=== PATIENT | male | born 1960 | race Caucasian/White ===

== ENCOUNTER 2020-11-05 12:41 | Inpatient (IN) | payer OTHER ==
[2020-11-05] MEDS ORDERED: NITROGLYCERIN SL TABS 0.4 MG TAB SUBLINGUAL PRN ×2 (13:03→18:25)
--- NOTE | 2020-11-05 13:05 | ED ---
Chest Pain HPI - General Source: patient, EMS, RN notes reviewed Mode of arrival: EMS Limitations: no limitations <Toi Rebolledo - Last Filed: 11/05/20 13:16> <Mc Gallo - Last Filed: 11/05/20 14:42> - General Chief Complaint: Chest Pain Stated Complaint: Chest Pain Time Seen by Provider: 11/05/20 12:49 - History of Present Illness Initial Comments: This is a 60-year-old male [facility] emergency [facility] Chief Complaint of Chest Pain. Patient States She's Had to Spend the past but Was More Extensive This Morning. Patient States Started While Putting Wood into the Wood Stove. Patient Was Evaluated and [facility] in Which His Troponin Was 0.045. Patient Was Given Aspirin, Nitro. He States That His Pain Resolved with Nitro He Has No Current Complaints of Chest Pain. Patient Was Started on Heparin Drip. Patient Denies Shortness Breath No Diapho retic Episodes of Abdominal Pain No Leg Pain or Leg Swelling. (Toi Rebolledo) - Related Data Allergies Allergy/AdvReac Type Severity Reaction Status Date / Time sulfamethoxazole Allergy Unknown Verified 11/05/20 13:56 [From Bactrim] trimethoprim [From Bactrim] Allergy Unknown Verified 11/05/20 13:56 Review of Systems ROS Other: All systems not noted in ROS Statement are negative. <Toi Rebolledo - Last Filed: 11/05/20 13:16> ROS Other: All systems not noted in ROS Statement are negative. <Mc Gallo - Last Filed: 11/05/20 14:42> ROS Statement: Those systems with pertinent positive or pertinent negative responses have been documented in the HPI. Past Medical History Past Medical History: Hyperlipidemia, Hypertension History of Any Multi-Drug Resistant Organisms: None Reported Past Surgical History: Heart Catheterization Past Psychological History: No Psychological Hx Reported Smoking Status: Former smoker Past Alcohol Use History: Occasional Past Drug Use History: None Reported <Toi Rebolledo - Last Filed: 11/05/20 13:16> - Past Family History Father Family Medical History: Cancer Additional Family Medical History / Comment(s): Father of some form of cancer. Mother Family Medical History: No Reported History Additional Family Medical History / Comment(s): Mother is alive and healthy <Mc Gallo - Last Filed: 11/05/20 14:42> General Exam Limitations: no limitations General appearance: alert, in no apparent distress Head exam: Present: atraumatic, normocephalic, normal inspection Eye exam: Present: normal appearance, PERRL, EOMI. Absent: scleral icterus, conjunctival injection, periorbital swelling ENT exam: Present: normal exam, normal oropharynx, mucous membranes moist Neck exam: Present: normal inspection, full ROM. Absent: tenderness, meningismus, lymphadenopathy Respiratory exam: Present: normal lung sounds bilaterally. Absent: respiratory distress, wheezes, rales, rhonchi, stridor Cardiovascular Exam: Present: regular rate, normal rhythm, normal heart sounds. Absent: systolic murmur, diastolic murmur, rubs, gallop, clicks GI/Abdominal exam: Present: soft, normal bowel sounds. Absent: distended, tenderness, guarding, rebound, rigid <Toi Rebolledo - Last Filed: 11/05/20 13:16> Course <Mc Gallo - Last Filed: 11/05/20 14:42> Vital Signs 11/05/20 11/05/20 12:46 13:30 Temperature 97.9 F Pulse Rate 64 72 Respiratory 18 18 Rate Blood Pressure 144/87 129/92 O2 Sat by Pulse 98 98 Oximetry - Reevaluation(s) Reevaluation #1: 11/05/20 14:42 Case discussed with the admitting physician Dr. Liu, heparin has been continued, patient is chest pain-free in the emergency department. Cardiology has been paged. Echo has been ordered. (Mc Gallo) Chest Pain MDM <Toi Rebolledo - Last Filed: 11/05/20 13:16> - MDM Prior medical records were reviewed. Repeat troponin was ordered, patient will be continued on heparin. (Toi Rebolledo) Disposition <Toi Rebolledo - Last Filed: 11/05/20 13:16> <Mc Gallo - Last Filed: 11/05/20 14:42> Clinical Impression: Chest pain Disposition: ADMITTED IP TO THIS HOSP Condition: Fair
[2020-11-05] MEDS ORDERED: HEPARIN SOD,PORK IN 0.45% NACL 25,000 UNIT in 0.45% NACL 1 250ML.BAG IV SCH (13:15)
--- NOTE | 2020-11-05 18:20 | ECHOF ---
Referral Reason:chest pain MEASUREMENTS -------- HEIGHT: 175.3 cm WEIGHT: 99.8 kg BP: 144/87 RVIDd: 3.3 cm (< 3.3) IVSd: 1.0 cm (0.6 - 1.1) LVIDd: 4.7 cm (3.9 - 5.3) LVPWd: 0.9 cm (0.6 - 1.1) IVSs: 1.6 cm LVIDs: 3.0 cm LVPWs: 1.6 cm LA Diam: 3.7 cm (2.7 - 3.8) LAESV Index (A-L): 20.19 ml/m Ao Diam: 3.5 cm (2.0 - 3.7) AV Cusp: 2.2 cm (1.5 - 2.6) MV EXCURSION: 10.090 mm (> 18.000) MV EF SLOPE: 91 mm/s (70 - 150) EPSS: 0.3 cm MV E Mainor: 0.86 m/s MV DecT: 173 ms MV A Mainor: 0.77 m/s MV E/A Ratio: 1.12 RAP: 5.00 mmHg RVSP: 30.80 mmHg FINDINGS -------- Sinus rhythm. This was a technically adequate study. The left ventricular size is normal. Left ventricular wall thickness is normal. Overall left vent ricular systolic function is normal with, an EF between 60 - 65 %. The right ventricle is mildly enlarged. Normal LA size by volume 22+/-6 ml/m2. The right atrium is normal in size. Interatrial and interventricular septum intact. The aortic valve is trileaflet and appears structurally normal. There is trace to mild mitral regurgitation. Mild tricuspid regurgitation present. Right ventricular systolic pressure is normal at < 35 mmHg. Trace/mild (physiologic) pulmonic regurgitation. The aortic root size is normal. IVC Not well visulized. There is no pericardial effusion. CONCLUSIONS -------- 1. The left ventricular size is normal. 2. Left ventricular wall thickness is normal. 3. Overall left ventricular systolic function is normal with, an EF between 60 - 65 %. 4. The right ventricle is mildly enlarged. 5. There is trace to mild mitral regurgitation. 6. Mild tricuspid regurgitation present. 7. Trace/mild (physiologic) pulmonic regurgitation. 8. There is no pericardial effusion. VEST FRONT PRESSER: SYDNEE Huerta
[2020-11-05] MEDS ORDERED: ALPRAZolam 0.5 MG TAB PO PRN (18:25)
[2020-11-05] MEDS ORDERED: ALPRAZolam 0.25 MG TAB PO PRN (18:25)
--- NOTE | 2020-11-05 18:30 | P.CRDCN ---
History of Present Illness Consult date: 11/05/20 History of present illness: This is a 60-year-old gentleman with history of hypertension and hypercholesterolemia who had a cardiac catheterization several years ago in [place]. Patient is also a former smoker. Patient went to [facility] because of chest pains. Apparently patient has been having some tight feeling with exertion and relieved with rest for several days prior to today. Today patient started having chest discomfort that did not go away with rest. The there is some radiation of the discomfort to the left arm. No complaints of any nausea, vomiting, sweating or shortness of breath. In the emergency room in [facility], patient was treated with sublingual nitro with improvement of symptoms. Subsequently, patient is transferred here. His EKG showed sinus bradycardia without any acute ST-T changes. However, his cardiac enzymes studies are showing abnormal troponin consistent with unstable angina/non-STEMI. Patient is being treated with nitrates, heparin, aspirin and lipid-lowering agents. He is advised to have a cardiac catheterization for definite diagnosis. He is being scheduled for the procedure tomorrow. Patient is also going to have an echocardiogram. Patient is not given beta lj because of bradycardia Review of Systems As per the chart Past Medical History Past Medical History: Chest Pain / Angina, Hyperlipidemia, Hypertension Additional Past Medical History / Comment(s): Murmur, past head injury History of Any Multi-Drug Resistant Organisms: None Reported Past Surgical History: Heart Catheterization, Hernia Repair Additional Past Surgical History / Comment(s): 2004 cardiac cath, umbilical hernia repair, colonoscopy Past Anesthesia/Blood Transfusion Reactions: No Reported Reaction Smoking Status: Former smoker - Past Family History Father Family Medical History: Cancer Additional Family Medical History / Comment(s): Father of some form of cancer. Mother Family Medical History: No Reported History Additional Family Medical History / Comment(s): Mother is alive and healthy Medications and Allergies Home Medications Medication Instructions Recorded Confirmed Type Aspirin EC [Ecotrin Low Dose] 81 mg PO DAILY 11/05/20 11/05/20 History Cholecalciferol [Vitamin D3 (25 25 mcg PO DAILY 11/05/20 11/05/20 History Mcg = 1000 Iu)] Fenofibrate Nanocrystallized 145 mg PO DAILY 11/05/20 11/05/20 History [Tricor] Fish Oil/Dha/Epa [Fish Oil 1,200 1 cap PO DAILY 11/05/20 11/05/20 History mg Fish Oil] Lisinopril-Hctz 20-25 mg 1 tab PO DAILY 11/05/20 11/05/20 History [Zestoretic 20-25] amLODIPine [Norvasc] 10 mg PO DAILY 11/05/20 11/05/20 History Allergies Allergy/AdvReac Type Severity Reaction Status Date / Time sulfamethoxazole Allergy Unknown Verified 11/05/20 13:56 [From Bactrim] trimethoprim [From Bactrim] Allergy Unknown Verified 11/05/20 13:56 Physical Exam Vitals: Vital Signs Temp Pulse Pulse Resp BP BP Pulse Ox 11/05/20 15:20 98.3 F 57 L 16 140/87 97 11/05/20 14:25 97.8 F 55 L 16 159/91 98 11/05/20 13:30 72 18 129/92 98 11/05/20 13:04 98 11/05/20 12:46 97.9 F 64 18 144/87 98 Intake and Output 11/05/20 11/05/20 11/05/20 06:59 14:59 22:59 Other: Weight 99.79 kg GENERAL EXAM: Patient is alert and oriented and doesn't appear to be in any acute distress HEENT: Normocephalic. Normal reaction of pupils, equal size, normal range of extraocular motion. No erythema or exudates in the throat. NECK: No masses, no nuchal rigidity. CHEST: No chest wall deformity. LUNGS: Equal air entry with no crackles or wheeze. HEART: S1 and S2 normal with no audible mumurs or gallops. Regular rhythm, femorals equal on both sides.. ABDOMEN: No hepatosplenomegaly, normal bowel sounds, no guarding or rigidity. SKIN: No rashes CENTRAL NERVOUS SYSTEM: No focal deficits. EXTREMITIES: No cyanosis, clubbing or edema. Results Cardiac Enzymes 11/05/20 11/05/20 Range/Units 13:16 16:16 Troponin I 0.232 H* 0.564 H* (0.000-0.034) ng/mL Current Medications Generic Name Dose Route Start Last Admin Trade Name Freq PRN Reason Stop Dose Admin Amlodipine Besylate 10 mg 11/06/20 09:00 Amlodipine 10 Mg Tab PO DAILY [facility] Aspirin 325 mg 11/06/20 09:00 Aspirin 325 Mg Tab PO DAILY [facility] Aspirin 81 mg 11/06/20 09:00 Aspirin 81 Mg PO DAILY [facility] Cholecalciferol 25 mcg 11/06/20 09:00 Cholecalciferol 25 Mcg (1000 Iu) Tablet PO DAILY [facility] Fenofibrate 160 mg 11/06/20 09:00 Fenofibrate 160 Mg Tab PO DAILY [facility] Lisinopril/HCTZ 1 each 11/06/20 09:00 Lisinopril-Hctz 20-25 Mg 1 Each Tab PO DAILY [facility] Heparin Sodium/Sodium Chloride 250 mls @ 9.999 mls/hr 11/05/20 13:15 11/05/20 13:25 25,000 unit/ Sodium Chloride IV 10.02 units/kg/hr .Q24H [facility] 9.999 mls/hr Administration Protocol 10.02 UNITS/KG/HR Isosorbide Mononitrate 30 mg 11/06/20 09:00 Isosorbide Mononitrate Er 30 Mg Tab.Er.24h PO DAILY [facility] Nitroglycerin 0.4 mg 11/05/20 13:03 Nitroglycerin Sl Tabs 0.4 Mg Tab SUBLINGUAL Q5M PRN Chest Pain Intake and Output 11/05/20 11/05/20 11/05/20 06:59 14:59 22:59 Other: Weight 99.79 kg Patient Weight 11/06/20 06:59 Weight 99.79 kg EKG Interpretations (text) Sinus rhythm and sinus bradycardia Assessment and Plan (1) Unstable angina Current Visit: Yes Status: Acute Code(s): I20.0 - UNSTABLE ANGINA SNOMED Code(s): 9179055 (2) Essential hypertension Current Visit: Yes Status: Acute Code(s): I10 - ESSENTIAL (PRIMARY) HYPERTENSION SNOMED Code(s): 90561635 (3) Hypercholesterolemia Current Visit: Yes Status: Acute Code(s): E78.00 - PURE HYPERCHOLESTEROLEMIA, UNSPECIFIED SNOMED Code(s): 49433197 (4) History of smoking Current Visit: Yes Status: Acute Code(s): Z87.891 - PERSONAL HISTORY OF NICOTINE DEPENDENCE SNOMED Code(s): 147504626 Plan: Continue with nitrates, aspirin, heparin and lipid-lowering agents. Echo in the morning. Cardiac catheterization the morning
[2020-11-06] MEDS ORDERED: HEPARIN SODIUM,PORCINE 5,000 UNIT/ML 1 ML VIAL IV PRN (00:18)
[2020-11-06] MEDS ORDERED: ATORVASTATIN 80 MG TAB PO ONE (06:00)
[2020-11-06] MEDS ORDERED: SODIUM CHLORIDE 0.9% 1,000 ML in EMPTY BAG 1 BAG IV ONE (06:00)
[2020-11-06] MEDS ORDERED: ASPIRIN 325 MG TAB PO ONE (07:00)
[2020-11-06] MEDS ORDERED: HEPARIN SODIUM,PORCINE 2,500 UNIT in SODIUM CHLORIDE 0.9% 250 ML IRRIGATION PRN (07:00)
[2020-11-06] MEDS ORDERED: HEPARIN SODIUM,PORCINE 10,000 UNIT in SODIUM CHLORIDE 0.9% 1,000 ML IRRIGATION PRN (07:00)
[2020-11-06] MEDS ORDERED: LIDOCAINE 1% INJ 10MG/ML (20 ML MDV) ONE (07:39)
[2020-11-06] MEDS ORDERED: fentaNYL (PF) 50 MCG/ML 2 ML AMP ONE (07:41)
[2020-11-06] MEDS ORDERED: VERAPAMIL 2.5 MG/ML 2 ML AMP ONE (07:41)
[2020-11-06] MEDS ORDERED: fentaNYL (PF) 50 MCG/ML 2 ML AMP IV ONE (08:05)
[2020-11-06] MEDS ORDERED: IV FLUID CONTINUATION 1,000 ML IV ONE (08:06)
[2020-11-06] MEDS ORDERED: LIDOCAINE 1% INJ 10MG/ML (20 ML MDV) SQ ONE (08:06)
[2020-11-06] MEDS ORDERED: MIDAZOLAM 2 MG/2 ML VIAL IV ONE ×2 (08:06→11:02)
[2020-11-06] MEDS: VERAPAMIL SYRINGE (5 MG/10 ML) INTRAARTER ONE ×2 (08:11→08:27)
[2020-11-06] MEDS ORDERED: IOPAMIDOL-370 125ML BTL INJ ONE ×2 (08:24→10:28)
[2020-11-06 08:33] LABS: Mean Platelet Volume 7.9; Platelet Count 187 k/uL (150-450)
[2020-11-06 08:37] LABS: Cholesterol 194 mg/dL (<200); HDL Cholesterol 33 mg/dL (40-60); LDL Cholesterol,Calculated 119 mg/dL (0-99); Triglycerides 212 mg/dL (<150)
--- NOTE | 2020-11-06 08:44 | P.CARDCATH ---
Date of Procedure: 11/06/20 Preoperative Diagnosis: Unstable angina/non-STEMI Postoperative Diagnosis: Triple-vessel disease Procedure(s) Performed: Left heart catheterization without left ventriculography Description of Procedure: HISTORY: This is a 60-year-old gentleman with history of hypertension and hypercholesteremia, and remote history of smoking, who has been having exertional chest pain for several days but admitted now with prolonged chest pain even at rest. His EKG did not reveal anything cardiac enzymes showed mild troponin elevation. Patient is advised to have a cardiac catheterization for definitive diagnosis. CONSENT:I have discussed the risks, benefits and alternative therapies for the above-mentioned procedure and for both sedation/analgesia as well as necessary blood product administration, if indicated, as they pertain to this patient. The patient has indicated understanding and acceptance of the risks and procedures discussed. PROCEDURE: Patient was brought to the lab in a fasting state. Patient was given some IV sedation. The right wrist is infiltrated with lidocaine and right radial artery was entered using Seldinger technique. A 6-Albanian catheter was left in place and selective coronary arteriography was performed. Patient tolerated the procedure well. Patient is waiting to have possible stent placement by Dr. Millan.. No immediate complications were noted Conscious Sedation: Versed 1mg Fentanyl 50 g Duration 20minutes HEMODYNAMICS: Aortic pressure is about 130/70. Left ventricular end-diastolic pressure is about 20. There was no gradient across the aortic valve. SELECTIVE CORONARY ARTERIOGRAPHY: LEFT MAIN: Normal in length and free of occlusive disease THE LEFT ANTERIOR DESCENDING CORONARY ARTERY:. This is a good caliber vessel giving rise to good-sized diagonal branch. After the diagonal branch there is an area of about 70-80% stenosis. THE LEFT CIRCUMFLEX AND IS CORONARY ARTERY: This is a good caliber vessel with about 80-90% stenosis in midportion with cessation of clot THE RIGHT CORONARY ARTERY:. This is a moderate caliber vessel with about 99% stenosis involving the distal RCA LEFT VENTRICULOGRAPHY: Not performed FINAL IMPRESSION:, Vessel disease with critical lesion in the distal RCA mid circumflex and mid LAD PLAN:. Possible stent placement of all 3 lesions, possibly in a staged fashion. Dr. Millan to evaluate the patient PROGNOSIS: Fair
[2020-11-06] MEDS ORDERED: NON FORMULARY DRUG (Fish Oil/Dha/Epa [Fish Oil 1,200 Mg Fish Oil] 1 EACH Capsule) PO SCH (09:00)
[2020-11-06] MEDS ORDERED: ASPIRIN 325 MG TAB PO SCH (09:00)
[2020-11-06] MEDS ORDERED: ISOSORBIDE MONONITRATE ER 30 MG TAB.ER.24H PO SCH (09:00)
[2020-11-06] MEDS ORDERED: FENOFIBRATE 160 MG TAB PO SCH (09:00)
[2020-11-06] MEDS ORDERED: PRASUGREL 10 MG TAB ONE ×2 (10:15)
[2020-11-06] MEDS ORDERED: HEPARIN SODIUM 1,000 UN/ML (10ML VL) IV ONE ×2 (10:15→10:27)
[2020-11-06] MEDS ORDERED: PRASUGREL 10 MG TAB PO ONE (10:18)
[2020-11-06] MEDS ORDERED: HEPARIN SODIUM 1,000 UN/ML (10ML VL) ONE (10:40)
[2020-11-06] MEDS ORDERED: NITROGLYCERIN 1000MCG/10ML SYRINGE INTRACORON ONE (10:51)
[2020-11-06] MEDS ORDERED: IOPAMIDOL-370 100ML BTL INJ ONE ×3 (10:54→11:40)
[2020-11-06] MEDS ORDERED: NITROGLYCERIN SL TABS 0.4 MG TAB SUBLINGUAL PRN (12:06)
[2020-11-06] MEDS ORDERED: RX INFO: IV CONTRAST WAS GIVEN 1 EACH MISC MISCELLANE PRN (12:06)
[2020-11-06] MEDS ORDERED: ATROPINE SULFATE 0.1 MG/ML 10ML SYRINGE IV PRN (12:06)
[2020-11-06] MEDS ORDERED: ZOLPIDEM 5 MG TAB PO PRN (12:06)
[2020-11-06] MEDS ORDERED: MAG HYDROX/AL HYDROX/SIMETH 30 ML CUP PO PRN (12:06)
[2020-11-06] MEDS ORDERED: SODIUM CHLORIDE 0.9% 1,000 ML IV SCH (12:15)
--- NOTE | 2020-11-06 12:33 | PTCA ---
PERCUTANEOUSTRANS CORORONARY ANGIOGRAPHY Mr. Peck is a 60-year-old male with no prior documented history of coronary artery disease who presented with symptoms of chest discomfort and evidence of non STEMI. He underwent cardiac catheterization by Dr. Vanegas and was found to have critical stenosis in the first obtuse marginal branch, distal right coronary artery and moderate severe disease in the LAD. In view of that, recommendation was made regarding angioplasty and stenting. The procedure as well as the risks and the complications were discussed with the patient who is in full understanding and agreement. PROCEDURE: A 6-Martiniquais EBU 3.75 guiding catheter introduced in the system after cannulating the left main, a 0.014 balanced medium weight J-wire was advanced across the obtuse marginal branch and positioned. Subsequently a 2.5 x 12 mm Emerge NC balloon was advanced and one inflation at 10 atmospheres was done. Following that, the balloon was removed and a 2.5 x 15 mm Xience Penny stent was advanced, deployed and post dilated at 16 atmospheres. After the last inflation, after appropriate wait, the balloon and the guidewire were withdrawn back in the guiding catheter. Images were obtained and repeated. Those images reveal stable successful stenting. At that point, the guiding catheter was removed and a 0.75 AL guiding catheter introduced in the system. After cannulating the right coronary ostium, a 0.014 balanced medium weight J-wire was advanced to the mid RCA. Subsequently, another 0.014 balanced medium weight J-wire with the help of a straight SuperCross microcatheter was used to advance the second wire to the distal RCA. Subsequently, the microcatheter was removed and the 2.5 x 12 mm NC Emerge balloon was advanced and inflation at 10 atmospheres was done in the distal segment. Following that, the balloon was removed and there was evidence of an area of haziness in the proximal right coronary artery. At that time, a 2.5 x 15 mm Xience Penny stent was advanced in the proximal RCA, deployed and post dilated at 16 atmospheres. Following that, the balloon was removed and a 2.5 x 18 mm Xience Penny stent was advanced to the distal RCA, deployed and post dilated at 16 atmospheres. After removing that balloon, attempt to advance another 2.5 x 18 mm Xience Penny stent were unsuccessful proximally. At that point, the stent was removed and a Guidezilla catheter was introduced and with the help of the Guidezilla catheter, the stent was advanced distally, deployed and post dilated at 16 atmospheres. Following that, the balloon was removed and a 2.75 x 12 mm NC Trek balloon was advanced to the proximal RCA and one inflation at 14 atmospheres was done. After the last inflation, after appropriate wait, the balloon and the guidewire were withdrawn back in the guiding catheter. Images were obtained and repeated. Those images reveal stable successful stenting. At that point, the patient was complaining of significant chest discomfort, but there was no EKG changes. At that time, the guiding catheter was removed and images of the left circumflex were performed that revealed a patent stent. Subsequently, other images of the right coronary were performed that revealed no evidence of any haziness or impairment of the flow. By that time, his discomfort was resolving at the end the procedure. The guiding catheter, the balloon and the guidewire were removed. The sheath was removed. Hemostasis was obtained with deployment of a TR band. There was no immediate complication. The patient was returned to his room in stable condition. Of note, the patient received a loading dose of Effient as well as 11,000 units of IV heparin, his ACT was followed. There was no acute ST- segment changes and his chest discomfort almost resolved completely at the end procedure. RESULTS: 1. Successful stenting of the distal obtuse marginal branch with reduction of stenosis from 95% to 0%. 2. Successful stenting of the distal right coronary artery with reduction of stenosis from 99% to 0%. 3. Successful stenting of the proximal right coronary artery with reduction of stenosis from 70% to 0%. RECOMMENDATION: Patient will be continued on aspirin, Effient and statin. The importance of dual antiplatelet treatment were discussed with the patient and his family and they are in full understanding and agreement. Duration of sedation is 97 minutes. MMODL / IJN: [id number] /
[2020-11-06] MEDS: LISINOPRIL-HCTZ 20-25 MG 1 EACH TAB PO SCH (12:56)
[2020-11-06] MEDS: METOPROLOL TARTRATE 25 MG TAB PO SCH ×2 (12:56→20:09)
[2020-11-06] MEDS: amLODIPine 10 MG TAB PO SCH (12:56)
[2020-11-06] MEDS: CHOLECALCIFEROL 25 MCG (1000 IU) TABLET PO SCH (12:56)
[2020-11-06] MEDS: ACETAMINOPHEN TAB 325 MG TAB PO PRN (17:51)
[2020-11-06] MEDS: NITROGLYCERIN OINT 1 INCH/GM PACKET TOPICAL SCH (17:51)
--- NOTE | 2020-11-06 20:04 | P.HPIM ---
History of Present Illness H&P Date: 11/06/20 Chief Complaint: Chest pain History of presenting complaint: This is a 60-year-old patient of Dr. Raffi Mccurdy. Chronic stable medical conditions include hyperlipidemia, hypertension, head injury in the past. Did have a cardiac catheterization 2015 was unremarkable. Patient is an ex-smoker. Woke up yesterday morning with chest pain and going across the chest. Was short of breath. No perspiration no nausea no tiredness. Symptoms lasted for a while. Initially patient went to [facility] ER. Troponin was 0.045.. Improved with nitro. 6 Presented to the ER. Troponins were positive. Was given aspirin and started IV heparin. This morning underwent cardiac catheterization. And received 3 stents. Postprocedure sitting on bed. No chest pain. A bit tired Review of systems: GEN.: Tired EYES: None HEENT: None NECK: None RESPIRATORY: None CARDIOVASCULAR: As above GASTROINTESTINAL: None GENITOURINARY: None MUSCULOSKELETAL: None LYMPHATICS: None HEMATOLOGICAL: None PSYCHIATRY: None NEUROLOGICAL: None Past medical history to include: Hypertension, hyperlipidemia, head injury, negative cardiac cath in 2004 Social history: Alcohol occasionally. Lives with Deyanira her significant other. 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 Smoked as a teenager through the age of 41. Physical examination: VITAL SIGNS: 97.9, 64, 18, 1 44 x 87, 98% room air GENERAL: BMI 32.6, sitting up, not in distress. EYES: Pupils equal. Conjunctiva normal. HEENT: External appearance of nose and ears normal, oral cavity grossly normal. NECK: JVD not raised; masses not palpable. HEART: First and second heart sounds are normal; no edema. LUNGS: Respiratory rate normal; clear to auscultation. ABDOMEN: Soft, nontender, liver spleen not palpable, no masses palpable. PSYCH: Alert and oriented x3; mood and affect normal. NEUROLOGICAL: Cranial nerves grossly intact; no facial asymmetry, power and sensation grossly intact. LYMPHATICS: No lymph nodes palpable in the axilla and neck INVESTIGATIONS, reviewed in the clinical context: Troponin I 0.232, 0.564, 0.610 LDL 119 Coronavirus [PCR]-not detected 2-D echocardiogram-EF 60-65%. No wall motion abnormality reported. Assessment and plan: -Acute non-Q wave myocardial infarction. Patient initially put on IV heparin and aspirin -Coronary artery disease with cardiac catheterization resulting in 3 stents -Essential hypertension: Patient currently on amlodipine, Zestoretic, -Hyperlipidemia: On Lipitor -Patient seen by cardiology., Dr. Alejandro./Dr. Millan Care was discussed with the patient. Questions were answered. Follow with cardiology. Past Medical History Past Medical History: Chest Pain / Angina, Hyperlipidemia, Hypertension Additional Past Medical History / Comment(s): Murmur, past head injury History of Any Multi-Drug Resistant Organisms: None Reported Past Surgical History: Heart Catheterization, Hernia Repair Additional Past Surgical History / Comment(s): 2004 cardiac cath, umbilical hernia repair, colonoscopy Past Anesthesia/Blood Transfusion Reactions: No Reported Reaction Smoking Status: Former smoker - Past Family History Father Family Medical History: Cancer Additional Family Medical History / Comment(s): Father of some form of cancer. Mother Family Medical History: No Reported History Additional Family Medical History / Comment(s): Mother is alive and healthy Medications and Allergies Home Medications Medication Instructions Recorded Confirmed Type Aspirin EC [Ecotrin Low Dose] 81 mg PO DAILY 11/05/20 11/05/20 History Cholecalciferol [Vitamin D3 (25 25 mcg PO DAILY 11/05/20 11/05/20 History Mcg = 1000 Iu)] Fenofibrate Nanocrystallized 145 mg PO DAILY 11/05/20 11/05/20 History [Tricor] Fish Oil/Dha/Epa [Fish Oil 1,200 1 cap PO DAILY 11/05/20 11/05/20 History mg Fish Oil] Lisinopril-Hctz 20-25 mg 1 tab PO DAILY 11/05/20 11/05/20 History [Zestoretic 20-25] amLODIPine [Norvasc] 10 mg PO DAILY 11/05/20 11/05/20 History Allergies Allergy/AdvReac Type Severity Reaction Status Date / Time sulfamethoxazole Allergy Unknown Verified 11/05/20 13:56 [From Bactrim] trimethoprim [From Bactrim] Allergy Unknown Verified 11/05/20 13:56 Physical Exam Vitals: Vital Signs Temp Pulse Pulse Resp BP BP Pulse Ox 11/06/20 04:00 97.9 F 60 20 113/71 94 L 11/05/20 23:59 98.2 F 60 18 101/56 92 L 11/05/20 20:00 97.6 F 71 18 126/74 94 L 11/05/20 15:20 98.3 F 57 L 16 140/87 97 11/05/20 14:25 97.8 F 55 L 16 159/91 98 11/05/20 13:30 72 18 129/92 98 11/05/20 13:04 98 11/05/20 12:46 97.9 F 64 18 144/87 98 Intake and Output 11/05/20 11/06/20 11/06/20 22:59 06:59 14:59 Intake Total 720 108.322 100 Balance 720 108.322 100 Intake: IV 100 Intake, IV Titration 108.322 Amount Heparin Sod,Pork in 0.45% 108.322 NaCl 25,000 unit In 0.45 % NaCl 1 250ml.bag @ 10. 02 UNITS/KG/HR 9.999 mls/ hr IV .Q24H [facility] Rx#: [id number] Oral 720 0 Other: Voiding Method Toilet # Voids 1 3 Weight 100 kg Results CBC & Chem 7: 11/06/20 07:24 Labs: Abnormal Lab Results - Last 24 Hours (Table) 11/05/20 11/05/20 11/05/20 Range/Units 13:16 16:16 19:02 APTT (22.0-30.0) sec Troponin I 0.232 H* 0.564 H* 0.610 H* (0.000-0.034) ng/mL Triglycerides (<150) mg/dL LDL Cholesterol, Calc (0-99) mg/dL HDL Cholesterol (40-60) mg/dL 11/06/20 11/06/20 Range/Units 07:24 07:24 APTT 37.0 H (22.0-30.0) sec Troponin I (0.000-0.034) ng/mL Triglycerides 212 H (<150) mg/dL LDL Cholesterol, Calc 119 H (0-99) mg/dL HDL Cholesterol 33 L (40-60) mg/dL Thrombosis Risk Factor Assmnt - Choose All That Apply Any of the Below Risk Factors Present?: Yes Each Factor Represents 1 point: Age 41-60 years, Obesity (BMI >25) Other Risk Factors: No Other congenital or acquired thrombophilia - If yes, enter type in comment: No Thrombosis Risk Factor Assessment Total Risk Factor Score: 2 Thrombosis Risk Factor Assessment Level: Low Risk
[2020-11-06] MEDS: ATORVASTATIN 80 MG TAB PO SCH (20:09)
[2020-11-07] MEDS: NITROGLYCERIN OINT 1 INCH/GM PACKET TOPICAL SCH ×5 (00:09→23:55)
[2020-11-07] MEDS: ACETAMINOPHEN TAB 325 MG TAB PO PRN ×2 (00:12→19:46)
[2020-11-07 07:11] LABS: Mean Platelet Volume 7.5; Platelet Count 220 k/uL (150-450)
[2020-11-07 07:25] LABS: Calcium 9.2 mg/dL (8.4-10.2); Potassium 3.6 mmol/L (3.5-5.1)
[2020-11-07] MEDS: ASPIRIN 81 MG PO SCH (09:08)
[2020-11-07] MEDS: LISINOPRIL-HCTZ 20-25 MG 1 EACH TAB PO SCH (09:08)
[2020-11-07] MEDS: CHOLECALCIFEROL 25 MCG (1000 IU) TABLET PO SCH (09:08)
[2020-11-07] MEDS: METOPROLOL TARTRATE 25 MG TAB PO SCH ×2 (09:08→19:42)
[2020-11-07] MEDS: PRASUGREL 10 MG TAB PO SCH (09:08)
[2020-11-07] MEDS: amLODIPine 10 MG TAB PO SCH (09:08)
[2020-11-07 10:35] VITALS: BMI 31.6
--- NOTE | 2020-11-07 14:46 | P.PN ---
Subjective Progress Note Date: 11/07/20 The patient was interviewed and examined sitting comfortably on the side of the bed. Over the last 24 hours he did have several episodes of chest pain. He states they were sharp and brief. He was started on a nitro ointment, and he has not had any recurrence since. He states he is breathing well and is comfortable lying flat in bed at night. No palpitations, dizziness, or lightheadedness. GENERAL: Well-appearing, well-nourished and in no acute distress. NECK: Supple without JVD or thyromegaly. LUNGS: Breath sounds clear to auscultation bilaterally. Respiration equal and unlabored. No wheezes, rales or rhonchi. HEART: Regular rate and rhythm without murmurs, rubs or gallops. S1 and S2 heard. EXTREMITIES: Normal range of motion, no edema. No clubbing or cyanosis. Peripheral pulses intact and strong. Right radial Site is clean, dry, and intact. Mild bruising noted. VITALS: Blood pressure 126/74, SpO2 96% on room air, pulse rate 62, respiratory rate 16, temperature 97.5F TELEMETRY: Sinus rhythm LABS: Sodium 138, potassium 3.6, BUN 14, creatinine 1.14, lipid profile shows LDL 119 IMPRESSION: #1 non-ST elevated myocardial infarction, multivessel coronary artery disease, status post stenting of RCA and circumflex arteries #2 unstable angina, currently chest pain-free on Nitro-Bid #3 hypertension #4 hypercholesterolemia, started on statin therapy #5 current smoker PLAN: Discussed plan of care with the patient. He was standing the hospital for further observation one more night. Continue current medication regimen, including dual antiplatelet therapy and statins Reevaluation tomorrow for possible discharge The patient has been seen and evaluated. Plan of care has been reviewed and agreed upon by Dr Frausto. Objective - Vital Signs Vital signs: Vital Signs Temp 97.4 F L 11/07/20 12:00 Pulse 54 L 11/07/20 12:00 Resp 16 11/07/20 14:00 BP 105/68 11/07/20 12:00 Pulse Ox 95 11/07/20 12:00 Intake & Output 11/06/20 11/07/20 11/07/20 18:59 06:59 18:59 Intake Total 1220 1425 200 Output Total 700 600 Balance 520 825 200 Weight 97.1 kg Intake: IV 300 Intake, IV Titration 300 Amount Sodium Chloride 0.9% 1, 300 000 ml @ 75 mls/hr IV . [id number] [facility] Rx#:[id number] Oral 620 1425 200 Output: Urine 700 600 Other: Voiding Method Toilet Toilet Toilet # Voids 1 - Labs CBC & Chem 7: 11/07/20 06:41 11/07/20 06:41 Labs: Abnormal Lab Results - Last 24 Hours (Table) 11/07/20 Range/Units 06:41 Glucose 110 H (74-99) mg/dL
[2020-11-07] MEDS: ATORVASTATIN 80 MG TAB PO SCH (19:42)
--- NOTE | 2020-11-07 21:35 | P.PN ---
Progress Note - Text Progress Note Date: 11/07/20 Chief Complaint: Chest pain History of presenting complaint: This is a 60-year-old patient of Dr. Raffi Mccurdy. Chronic stable medical conditions include hyperlipidemia, hypertension, head injury in the past. Did have a cardiac catheterization 2015 was unremarkable. Patient is an ex-smoker. Woke up yesterday morning with chest pain and going across the chest. Was short of breath. No perspiration no nausea no tiredness. Symptoms lasted for a while. Initially patient went to [facility] ER. Troponin was 0.045.. Improved with nitro. 6 Presented to the ER. Troponins were positive. Was given aspirin and started IV heparin. This morning underwent cardiac catheterization. And received 3 stents. Today-no chest pain or shortness of breath. Has been out of bed. No dizziness nor lightheadedness. Review of systems: Was done for constitutional, cardiovascular, GI, pulmonary. relevant finding as above Active Medications Acetaminophen (Acetaminophen Tab 325 Mg Tab) 650 mg PO Q6HR PRN PRN Reason: Fever and/ or Pain Last Admin: 11/07/20 19:46 Dose: 650 mg Documented by: Al Hydroxide/Mg Hydroxide (Mag Hydrox/Al Hydrox/Simeth 30 Ml Cup) 30 ml PO Q4HR PRN PRN Reason: Heartburn Alprazolam (Alprazolam 0.25 Mg Tab) 0.25 mg PO Q6HR PRN PRN Reason: Mild Anxiety Alprazolam (Alprazolam 0.5 Mg Tab) 0.5 mg PO Q6HR PRN PRN Reason: Moderate Anxiety Last Admin: 11/06/20 14:23 Dose: 0.5 mg Documented by: Amlodipine Besylate (Amlodipine 10 Mg Tab) 10 mg PO DAILY [facility] Last Admin: 11/07/20 09:08 Dose: 10 mg Documented by: Aspirin (Aspirin 81 Mg) 81 mg PO DAILY [facility] Last Admin: 11/07/20 09:08 Dose: 81 mg Documented by: Atorvastatin Calcium (Atorvastatin 80 Mg Tab) 80 mg PO HS [facility] Last Admin: 11/07/20 19:42 Dose: 80 mg Documented by: Atropine Sulfate (Atropine Sulfate 0.1 Mg/Ml 10ml Syringe) 0.5 mg IV ONCE PRN PRN Reason: Symptomatic Bradycardia Cholecalciferol (Cholecalciferol 25 Mcg (1000 Iu) Tablet) 25 mcg PO DAILY [facility] Last Admin: 11/07/20 09:08 Dose: 25 mcg Documented by: Lisinopril/HCTZ (Lisinopril-Hctz 20-25 Mg 1 Each Tab) 1 each PO DAILY [facility] Last Admin: 11/07/20 09:08 Dose: 1 each Documented by: Metoprolol Tartrate (Metoprolol Tartrate 25 Mg Tab) 25 mg PO BID [facility] Last Admin: 11/07/20 19:42 Dose: 25 mg Documented by: Miscellaneous Information (Rx Info: Iv Contrast Was Given 1 Each Misc) 1 each MISCELLANE DAILY PRN PRN Reason: Per Protocol Stop: 11/08/20 12:06 Nitroglycerin (Nitroglycerin Sl Tabs 0.4 Mg Tab) 0.4 mg SUBLINGUAL Q5M PRN PRN Reason: Chest Pain Nitroglycerin (Nitroglycerin Oint 1 Inch/Gm Packet) 1 inch TOPICAL Q6HR [facility] Last Admin: 11/07/20 17:04 Dose: 1 inch Documented by: Prasugrel (Prasugrel 10 Mg Tab) 10 mg PO DAILY [facility] Last Admin: 11/07/20 09:08 Dose: 10 mg Documented by: Zolpidem Tartrate (Zolpidem 5 Mg Tab) 5 mg PO HS PRN PRN Reason: Insomnia Past medical history to include: Hypertension, hyperlipidemia, head injury, negative cardiac cath in 2004 Social history: Alcohol occasionally. Lives with Deyanira her significant other. 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 Smoked as a teenager through the age of 41. Physical examination: VITAL SIGNS: 97.5, 62, 16, 126/74, 96% room air GENERAL: Laying in bed, comfortable. EYES: Pupils equal. Conjunctiva normal. HEENT: External appearance of nose and ears normal, oral cavity grossly normal. NECK: JVD not raised; masses not palpable. HEART: First and second heart sounds are normal; no edema. LUNGS: Respiratory rate normal; clear to auscultation. ABDOMEN: Soft, nontender, liver spleen not palpable, no masses palpable. PSYCH: Alert and oriented x3; mood and affect normal. INVESTIGATIONS, reviewed in the clinical context: November 07: Potassium 3.6 creatinine 1.14 Troponin I 0.232, 0.564, 0.610 LDL 119 Coronavirus [PCR]-not detected 2-D echocardiogram-EF 60-65%. No wall motion abnormality reported. Assessment and plan: -Acute non-Q wave myocardial infarction. Patient initially put on IV heparin and aspirin -Coronary artery disease with cardiac catheterization resulting in 3 stents -Essential hypertension: Patient currently on amlodipine, Zestoretic, -Hyperlipidemia: On Lipitor -Patient seen by cardiology., Dr. Alejandro./Dr. Millan Continue current medication treatment plan. Follow with cardiology hopefully home tomorrow.
[2020-11-08] MEDS: NITROGLYCERIN OINT 1 INCH/GM PACKET TOPICAL SCH ×2 (06:35→12:06)
[2020-11-08 07:41] LABS: Mean Platelet Volume 7.7; Platelet Count 222 k/uL (150-450)
[2020-11-08] MEDS: CHOLECALCIFEROL 25 MCG (1000 IU) TABLET PO SCH (08:29)
[2020-11-08] MEDS: METOPROLOL TARTRATE 25 MG TAB PO SCH (08:29)
[2020-11-08] MEDS: amLODIPine 10 MG TAB PO SCH (08:29)
[2020-11-08] MEDS: PRASUGREL 10 MG TAB PO SCH (08:29)
[2020-11-08] MEDS: LISINOPRIL-HCTZ 20-25 MG 1 EACH TAB PO SCH (08:29)
[2020-11-08] MEDS: ASPIRIN 81 MG PO SCH (08:29)
[2020-11-08 12:18] VITALS: BP 140/74; PULSE 68; RESP 16; TEMP 98.6
--- NOTE | 2020-11-08 13:59 | P.PN ---
Subjective Progress Note Date: 11/08/20 The patient was interviewed and examined sitting comfortably in bed. The patient states he has not had any more chest discomfort since adding Nitropaste. States he has been up ambulating around the halls. No shortness of breath, palpitations, dizziness, or lightheadedness. GENERAL: Well-appearing, well-nourished and in no acute distress. NECK: Supple without JVD or thyromegaly. LUNGS: Breath sounds clear to auscultation bilaterally. Respiration equal and unlabored. No wheezes, rales or rhonchi. HEART: Regular rate and rhythm without murmurs, rubs or gallops. S1 and S2 heard. EXTREMITIES: Normal range of motion, no edema. No clubbing or cyanosis. Peripheral pulses intact and strong. Right radial Site is clean, dry, and intact. +2 palpable pulse. VITALS: Blood pressure 128/82, respiratory rate 18, pulse rate 71, SpO2 95% on room air, temperature 97.9F TELEMETRY: Sinus rhythm LABS: No new laboratory data IMPRESSION: #1 non-ST elevated myocardial infarction, multivessel coronary artery disease, status post stenting of RCA and circumflex arteries #2 unstable angina, currently chest pain-free on Nitro-Bid #3 hypertension #4 hypercholesterolemia, started on statin therapy #5 current smoker PLAN: Continue current medication regimen, including dual antiplatelet therapy and statins. Patient is cleared to be discharged from the cardiac standpoint Patient had should have follow-up visit with primary care insurance professional in 1 week The patient has been seen and evaluated. Plan of care has been reviewed and agreed upon by Dr Frausto. Objective - Vital Signs Vital signs: Vital Signs Temp 98.6 F 11/08/20 12:17 Pulse 68 11/08/20 12:17 Resp 16 11/08/20 12:17 BP 140/74 11/08/20 12:17 Pulse Ox 96 11/08/20 12:17 Intake & Output 11/07/20 11/08/20 11/08/20 18:59 06:59 18:59 Intake Total 1521 475 480 Balance 1521 475 480 Weight 97.1 kg 97.2 kg Intake: Oral 1521 475 480 Other: Voiding Method Toilet Toilet Toilet # Voids 3 2 - Labs CBC & Chem 7: 11/08/20 07:09 11/07/20 06:41
--- NOTE | 2020-11-08 21:55 | P.DS ---
Providers Date of admission: 11/06/20 11:15 Expected date of discharge: 11/08/20 Attending physician: Eloy Liu Consults: 11/05/20 13:04 Consult Physician Urgent Consulting Provider: Luis Enrique Major Consult Reason/Comments: chest pain Do you want consulting provider notified?: Yes 11/06/20 12:06 Consult Physician Routine Consulting Provider: David Moore Consult Reason/Comments: Post Interventional patient Do you want consulting provider notified?: Already Contacted Primary care physician: Raffi Mccurdy [facility] Course: Chief Complaint: Chest pain History of presenting complaint: This is a 60-year-old patient of Dr. Raffi Mccurdy. Chronic stable medical conditions include hyperlipidemia, hypertension, head injury in the past. Did have a cardiac catheterization 2015 was unremarkable. Patient is an ex-smoker. Woke up yesterday morning with chest pain and going across the chest. Was short of breath. No perspiration no nausea no tiredness. Symptoms lasted for a while. Initially patient went to [facility] ER. Troponin was 0.045.. Improved with nitro. 6 Presented to the ER. Troponins were positive. Was given aspirin and started IV heparin. This morning underwent cardiac catheterization. And received 3 stents. Today-has been an bleeding. No chronic symptoms. Seen and cleared by cardiology today Consultation: [facility] Past medical history to include: Hypertension, hyperlipidemia, head injury, negative cardiac cath in 2004 Social history: Alcohol occasionally. Lives with Deyanira her significant other. 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 Smoked as a teenager through the age of 41. Physical examination: VITAL SIGNS: 98.6, 68, 16, 140/74, 96% room air GENERAL: Laying in bed, comfortable. EYES: Pupils equal. Conjunctiva normal. HEENT: External appearance of nose and ears normal, oral cavity grossly normal. NECK: JVD not raised; masses not palpable. HEART: First and second heart sounds are normal; no edema. LUNGS: Respiratory rate normal; clear to auscultation. ABDOMEN: Soft, nontender, liver spleen not palpable, no masses palpable. PSYCH: Alert and oriented x3; mood and affect normal. INVESTIGATIONS, reviewed in the clinical context: November 07: Potassium 3.6 creatinine 1.14 Troponin I 0.232, 0.564, 0.610 LDL 119 Coronavirus [PCR]-not detected 2-D echocardiogram-EF 60-65%. No wall motion abnormality reported. Assessment and plan: -Acute non-Q wave myocardial infarction. Patient initially put on IV heparin and aspirin -Coronary artery disease with cardiac catheterization resulting in 3 stents -Essential hypertension: Patient currently on amlodipine, Zestoretic, -Hyperlipidemia: On Lipitor -Patient seen by cardiology., Dr. Alejandro./Dr. Millan Disposition: Home Patient Condition at Discharge: Fair Plan - Discharge Summary Discharge Rx Participant: No New Discharge Prescriptions: New Prasugrel [Effient] 10 mg PO DAILY #30 tab Atorvastatin [Lipitor] 80 mg PO HS #30 tab Metoprolol Tartrate [Lopressor] 25 mg PO BID #60 tab Nitroglycerin Sl Tabs [Nitrostat] 0.4 mg SUBLINGUAL Q5M PRN #30 tab PRN Reason: Chest Pain Continue Lisinopril-Hctz 20-25 mg [Zestoretic 20-25] 1 tab PO DAILY Cholecalciferol [Vitamin D3 (25 Mcg = 1000 Iu)] 25 mcg PO DAILY amLODIPine [Norvasc] 10 mg PO DAILY Aspirin EC [Ecotrin Low Dose] 81 mg PO DAILY Fish Oil/Dha/Epa [Fish Oil 1,200 mg Fish Oil] 1 cap PO DAILY Discontinued Fenofibrate Nanocrystallized [Tricor] 145 mg PO DAILY Discharge Medication List Aspirin EC [Ecotrin Low Dose] 81 mg PO DAILY 11/05/20 [History] Cholecalciferol [Vitamin D3 (25 Mcg = 1000 Iu)] 25 mcg PO DAILY 11/05/20 [History] Fish Oil/Dha/Epa [Fish Oil 1,200 mg Fish Oil] 1 cap PO DAILY 11/05/20 [History] Lisinopril-Hctz 20-25 mg [Zestoretic 20-25] 1 tab PO DAILY 11/05/20 [History] amLODIPine [Norvasc] 10 mg PO DAILY 11/05/20 [History] Atorvastatin [Lipitor] 80 mg PO HS #30 tab 11/08/20 [Rx] Metoprolol Tartrate [Lopressor] 25 mg PO BID #60 tab 11/08/20 [Rx] Nitroglycerin Sl Tabs [Nitrostat] 0.4 mg SUBLINGUAL Q5M PRN #30 tab 11/08/20 [Rx] Prasugrel [Effient] 10 mg PO DAILY #30 tab 11/08/20 [Rx] Follow up Appointment(s)/Referral(s): Raffi Mccurdy MD [Primary Care Provider] - 1-2 days (Pt to make appointment, as office is closed at time of discharge. Ensure the office is aware that this is a follow up appointment from your hospital stay.) Neda Vanegas MD [STAFF PHYSICIAN] - 1 Week (Pt to make appointment, as office is closed at time of discharge. Ensure the office is aware that this is a follow up appointment from your hospital stay.) Patient Instructions/Handouts: *Surgery [facility] - After Heart Catheterization - [employer] Instructions Discharge Disposition: HOME SELF-CARE
== END 2020-11-08 15:05 | disposition home or self-care (01) | DRG 246 ==
LOC: EC 12:41 → 6NMEDSUR 13:18 → 3SCARD 15:50 → OBSVTOIN 11-06 11:15
PROVIDERS: ADMIT Hospitalist; ATTEND Hospitalist
PROC: 027137Z Dilation of Coronary Artery, Two Arteries with Four or More Drug-eluting Intraluminal Devices, Percutaneous Approach (ICD-10-PCS; principal; 2020-11-06 07:30)
PROC: 4A023N7 Measurement of Cardiac Sampling and Pressure, Left Heart, Percutaneous Approach (ICD-10-PCS; 2020-11-06 07:30)
PROC: B2111ZZ Fluoroscopy of Multiple Coronary Arteries using Low Osmolar Contrast (ICD-10-PCS; 2020-11-06 07:30)
DX: I21.4 Non-ST elevation (NSTEMI) myocardial infarction (principal); I25.10 Atherosclerotic heart disease of native coronary artery without angina pectoris; Z20.822 Contact with and (suspected) exposure to COVID-19; I10 Essential (primary) hypertension; E78.00 Pure hypercholesterolemia, unspecified; E78.5 Hyperlipidemia, unspecified; E66.9 Obesity, unspecified; R00.1 Bradycardia, unspecified; G47.00 Insomnia, unspecified; Z68.31 Body mass index [BMI] 31.0-31.9, adult; Z71.3 Dietary counseling and surveillance; Z79.899 Other long term (current) drug therapy; Z79.82 Long term (current) use of aspirin; Z87.828 Personal history of other (healed) physical injury and trauma; Z87.891 Personal history of nicotine dependence; Z88.2 Allergy status to sulfonamides; Z80.9 Family history of malignant neoplasm, unspecified
CPT/HCPCS: 36415; 80048; 80061; 84484; 85049; 85347; 85730; 87635; 93005; 93306; 93458; 94760; 99285